=== PATIENT | female | born 1950 | race Caucasian/White ===

== ENCOUNTER 2018-07-28 15:40 | Emergency (ER) | payer OTHER ==
[2018-07-28] MEDS ORDERED: ACETAMINOPHEN 325 MG TABLET (FP) PO ONE (15:57)
--- NOTE | 2018-07-28 15:58 | PDOC ---
History of Present Illness - General Stated Complaint: FALL Time Seen by Provider: 07/28/18 15:56 - History of Present Illness Initial Comments: 07/28/18 15:57 67 yo F with h/o HTN, HLD, DM who p/w left knee pain. Patient reports worsening left knee pain, redness, and difficultly with ambulation beginning (07-23-18) following mechanical fall. Denies head/neck/back trauma, or LOC. Patient reports being on ground for 35 minutes at that time before assisted ambulation. States that she went [facility] (07-[facility]-18), with neg L KNEE RAD. ( Patient has had increased difficulty with ambulation/unassisted. On Cyclobenzaprine, and Gabapentin. Has not attempted NSAID therapy. Also reports elevated home blood sugars x 3 days ~400s. Compliant with Metformin, sulfonyurea. Last knee procedure x 6 months ago. Patient denies N/V, cough, palpitations, wheezing, orthopnea, PND, leg pain/ swelling, F/C, CP, SOB, urinary complaints, abdominal pain, diarrhea, hematuria , BPR, constipation, lightheadedness, weakness, sensory changes. PMHx: as noted above ROS: as noted SHx: Denies tobacco, Etoh, IVDA Allergies: NKDA Past History - Past Medical History Allergies/Adverse Reactions: Allergies Allergy/AdvReac Type Severity Reaction Status Date / Time No Known Allergies Allergy Verified 06/18/17 11:30 Home Medications: Ambulatory Orders Cyclobenzaprine HCl 5 mg PO DAILY 07/28/18 Enalapril/Hydrochlorothiazide [Vaseretic 10-25 mg Tablet] 1 each PO DAILY Gabapentin 100 mg PO DAILY 07/28/18 Glipizide 5 mg PO DAILY 07/28/18 Sitagliptin Phos/Metformin HCl [Janumet 50-500 mg Tablet] 1 each PO BID Diabetes: Yes HTN: Yes Hypercholesterolemia: Yes - Surgical History Orthopedic Surgery: Yes (RAJNI tkr) - Suicide/Smoking/Psychosocial Hx Smoking History: Never smoked Review of Systems - Review of Systems Comments:: 07/28/18 16:05 GENERAL/CONSTITUTIONAL: No fever or chills. No weakness. HEAD, EYES, EARS, NOSE AND THROAT: No change in vision. No ear pain or discharge. No sore throat. CARDIOVASCULAR: No chest pain or shortness of breath RESPIRATORY: No cough, wheezing, or hemoptysis. GASTROINTESTINAL: No nausea, vomiting, diarrhea or constipation. GENITOURINARY: No dysuria, frequency, or change in urination. MUSCULOSKELETAL: + Left knee pain, and swelling. No neck or back pain. SKIN: No rash NEUROLOGIC: No headache, vertigo, loss of consciousness, or change in strength/ sensation. ENDOCRINE: No increased thirst. No abnormal weight change HEMATOLOGIC/LYMPHATIC: No anemia, easy bleeding, or history of blood clots. ALLERGIC/IMMUNOLOGIC: No hives or skin allergy. *Physical Exam - Physical Exam Comments: 07/28/18 16:05 GENERAL: Awake, alert, and fully oriented, in no acute distress HEAD: No signs of trauma, normocephalic, atraumatic EYES: PERRLA, EOMI, sclera anicteric, conjunctiva clear ENT: Hearing grossly normal, nares patent, oropharynx clear without exudates. Moist mucosa NECK: Normal ROM, supple, no lymphadenopathy, JVD, or masses LUNGS: No distress, speaks full sentences, clear to auscultation bilaterally HEART: Regular rate and rhythm, normal S1 and S2, no murmurs, rubs or gallops, peripheral pulses normal and equal bilaterally. EXTREMITIES : Normal inspection, Normal range of motion, no edema. No clubbing or cyanosis. L KNEE: + Left knee joint effusion with warmth, and ttp. + inferior patellar/ tibial tuberosity hemaotma 2x 2cm. Limited ROM 2/2 pain. Palpable and symmetirc 2 + DP/PT pulses. SKIN: Warm, Dry, normal turgor, no rashes or lesions noted Procedures - Arthrocentesis Indication: Inflammation Arthrocentesis Site: left: knee Flexion: 20-30 degree Betadine Prep: Yes Sterile Dressing Applied: Yes Dry Tap: No Fluid Color: Yellow Fluid Amount mL: 15 Anesthesia: 1% Lidocaine Needle Size (guage): 18g Complications: No ED Treatment Course - LABORATORY CBC & Chemistry Diagram: 07/28/18 16:35 07/28/18 16:30 Medical Decision Making - Medical Decision Making 07/28/18 16:05 67 yo F with h/o HTN, HLD, DM, BL KNEE Replacement, BIBA with left knee pain. Temp 100.3, HR 112, vitals otherwise wnl, A&Ox3. + Left knee joint effusion with warmth, and ttp. + inferior patellar/tibial tuberosity hematoma 2 x 2cm. Limited ROM 2/2 pain. Palpable and symmetric 2 + DP/PT pulses. LLE neurovasculalry intact. Possible joint effusion, hemarthrosis. R/o fracture/ dislocation, septic joint, prosthetic infection. ED Course: KNEE RAD LEFT CBC,CMP Tylenol, vanc, keflex 07/28/18 17:43 WBC: 13.3 Glu~340, anion gap 9, PH 7.40 LA: 1.5 Hyponatremia ~129 07/28/18 17:44 EKG: Sinus tachycardia HR 103, Q waves lead I,AVL. Absent DELONTE, STD, TWI. Poor R wave progression. Nml interval and axis duration. 07/28/18 18:06 Percocet 07/28/18 18:24 UA: 3+ blood, 1 RBC, LE + , Nitrite + . No urinary complaints. Keflex 500 mg PO 07/28/18 19:51 ORTHOPEDIST Clark Dasilva 07/28/18 19:54 Contacted [facility] transfer center. Plan to transfer. Per Dr. Mariangel Solo, perform arthocentesis with cell count and culture, before transfer. Pending CRP, ESR. [id number] 07/28/18 21:33 ESR/CRP: 92/22.6 07/28/18 22:[address] Mariangel solo refuses transfer. Requests joint aspiration. Joint aspiration, left knee. No complications. Yellow aspirate drawn 15 cc. Synovial fluid cell count, crystals, cx. pending Spoke to Dr. Solo. Continues to refuse transfer to [facility] until synovial fluid results. Spoke to [facility], agrees with IV AB, but will require transfer if patient with septic joint. 07/28/18 23:35 Patient accepted to med/surg [facility], Endorsed to Dr. Lorenzo. *DC/Admit/Observation/Transfer Diagnosis at time of Disposition: Sepsis Qualifiers: Sepsis type: sepsis due to unspecified organism Qualified Code(s): A41.9 - Sepsis, unspecified organism Septic joint of left knee joint Qualifiers: Septic arthritis organism: due to unspecified organism Qualified Code(s): M00.9 - Pyogenic arthritis, unspecified - Discharge Dispostion Condition at time of disposition: Stable Decision to Admit order: Yes - Referrals Referrals: Xavier Meade MD [Primary Care Provider] - - Patient Instructions - Post Discharge Activity
[2018-07-28 16:07] VITALS: BMI 20.9
[2018-07-28] MEDS ORDERED: ACETAMINOPHEN 325 MG TABLET (FP) ONE (16:36)
[2018-07-28 16:42] LABS: VENOUS PC02 42.6 mmHg (38-52); VENOUS PH 7.4 (7.32-7.42); VENOUS PO2 25.3 mmHg (28-48)
[2018-07-28 16:43] LABS: BASO % 0.4 % (0-2.0); EOS % 0.2 % (0-4.5); HEMATOCRIT 33.6 % (32.4-45.2); HEMOGLOBIN 11.6 GM/dL (10.7-15.3); LYMPH % 7.4 % (8-40); MCH 28.9 pg (25.7-33.7); MCHC 34.6 g/dl (32.0-36.0); MEAN CELL VOLUME 83.3 fl (80-96); MEAN PLT VOLUME 8.5 fl (7.5-11.1); MONO % 9.7 % (3.8-10.2); NEUT % 82.3 % (42.8-82.8); PLATELET COUNT 366 K/MM3 (134-434); RBC 4.04 M/mm3 (3.60-5.2); RDW 14.9 % (11.6-15.6); WHITE BLOOD COUNT 13.3 K/mm3 (4.0-10.0)
--- NOTE | 2018-07-28 17:14 | PDOC ---
Attending Attestation - HPI HPI: 07/28/18 17:43 The patient is a 67 year old female, with a significant past medical history of HTN, HLD, DM, who presents to the emergency department with, worsening left knee pain with associated difficulty ambulating, redness, and warmth. Patient endorses a mechanical fall on 07/23 and she had a knee x-ray without any pertinent findings. Today she notes her symptoms have persisted despite the use of Cyclobenzaprine and Gabapentin, prompting her visit to the ER. She denies recent fevers, chills, headache or dizziness. She denies recent nausea, vomit, diarrhea or constipation. She denies recent dysuria, frequency, urgency or hematuria. She denies recent chest pain or shortness of breath. Allergies: NKDA <LuizdaDilcia lazcano - Last Filed: 07/28/18 17:43> - Resident Resident Name: Brando Swensonson - ED Attending Attestation I have performed the following: I have examined & evaluated the patient, The case was reviewed & discussed with the resident, I agree w/resident's findings & plan, Exceptions are as noted - Physicial Exam PE: GENERAL: Awake, alert, and fully oriented, in no acute distress HEAD: No signs of trauma EYES: PERRLA, EOMI, sclera anicteric, conjunctiva clear ENT: Auricles normal inspection, hearing grossly normal, nares patent, oropharynx clear without exudates. Moist mucosa NECK: Normal ROM, supple, no lymphadenopathy, JVD, or masses LUNGS: Breath sounds equal, clear to auscultation bilaterally. No wheezes, and no crackles HEART: Regular rate and rhythm, normal S1 and S2, no murmurs, rubs or gallops ABDOMEN: Soft, nontender, normoactive bowel sounds. No guarding, no rebound. No masses EXTREMITIES: L knee with diffuse tenderness, swelling. +Erythematous rasied lesion over the proximal tibia. No overlying skin lesions. Remainder of extremities with normal range of motion, no edema. No clubbing or cyanosis. No cords, erythema, or tenderness NEUROLOGICAL: Cranial nerves II through XII grossly intact. Normal speech. Motor and sensation intact. Unable to ambulate due to pain. SKIN: Warm, Dry, normal turgor, no rashes or lesions noted. - Medical Decision Making Pt with redness, swelling to L knee, history of total knee replacement. Febrile in ED. There is no obvious point of entry for an infectious process, however, concerned that she has infected hardware. She may also have periprosthetic fx. Will obtain labs and XR, then will d/w her orthopedic surgeon. <Ni Forman - Last Filed: 07/29/18 10:49> Attestations - Attestations 07/28/18 17:43 Documentation prepared by Dilcia Macedo, acting as medical stenographer for Ni Forman MD. <Dilcia Macedo - Last Filed: 07/28/18 17:43>
[2018-07-28 17:32] LABS: ALBUMIN 2.5 g/dl (3.4-5.0); ALK PHOS 96 U/L (45-117); ANION GAP 9 MMOL/L (8-16); BILIRUBIN,TOTAL 0.8 mg/dL (0.2-1); BLOOD UREA NITROGEN 32 mg/dL (7-18); CALCIUM 8.9 mg/dL (8.5-10.1); CHLORIDE 93 mmol/L (98-107); CO2 26 mmol/L (21-32); CREATININE 1.1 mg/dL (0.55-1.3); POTASSIUM 4.2 mmol/L (3.5-5.1); SGOT/AST 13 U/L (15-37); SGPT/ALT 15 U/L (13-61); SODIUM 129 mmol/L (136-145); TOT PROT 6.9 g/dl (6.4-8.2)
[2018-07-28 17:37] LABS: GLUCOSE,RANDOM 340 mg/dL (74-106)
[2018-07-28] MEDS ORDERED: SODIUM CHLORIDE 1,660 ML IV ONE (17:42)
[2018-07-28 17:53] LABS: URINE APPEARANCE SLCLOUDY; URINE BILIRUBIN NEGATIVE (<2.0 mg/dL); URINE COLOR YELLOW; URINE GLUCOSE (UA) 3+ (NEGATIVE); URINE KETONE NEGATIVE (NEGATIVE); URINE LEUK ESTERASE 1+ (NEGATIVE); URINE NITRITE POSITIVE (NEGATIVE); URINE PROTEIN 1+ (NEGATIVE); URINE UROBILINOGEN NEGATIVE mg/dL (0.2-1.0)
[2018-07-28 17:57] LABS: URINE BACTERIA FEW /hpf (NONE SEEN); URINE MUCUS RARE
[2018-07-28] MEDS ORDERED: CEPHALEXIN MONOHYDRATE 500 MG CAPSULE (UD) PO ONE (18:24)
[2018-07-28] MEDS ORDERED: CEPHALEXIN MONOHYDRATE 500 MG CAPSULE (UD) ONE (18:35)
[2018-07-28] MEDS ORDERED: VANCOMYCIN 1,000 MG in DEXTROSE 5%-WATER - 250 ML IVPB ONE (19:48)
--- NOTE | 2018-07-28 19:48 | PDOC ---
*Physical Exam - Vital Signs Last Vital Signs Temp Pulse Resp BP Pulse Ox 100.5 F H 92 H 18 106/72 96 07/28/18 18:09 07/28/18 18:09 07/28/18 18:09 07/28/18 18:09 07/28/18 18:09 ED Treatment Course - LABORATORY CBC & Chemistry Diagram: 07/28/18 16:35 07/28/18 16:30 - ADDITIONAL ORDERS Additional order review: Laboratory Results 07/28/18 07/28/18 07/28/18 16:35 16:35 16:30 PTT (Actin FS) 28.2 VBG pH 7.40 POC VBG pCO2 42.6 POC VBG pO2 25.3 L Mixed VBG HCO3 26.9 H Sodium 129 L Potassium 4.2 Chloride 93 L Carbon Dioxide 26 Anion Gap 9 BUN 32 H Creatinine 1.1 Creat Clearance w eGFR 49.39 Random Glucose 340 H* Lactic Acid Calcium 8.9 Total Bilirubin 0.8 AST 13 L ALT 15 Alkaline Phosphatase 96 Troponin I 0.04 Total Protein 6.9 Albumin 2.5 L Urine Color Urine Appearance Urine pH Ur Specific [place] Urine Protein Urine Glucose (UA) Urine Ketones Urine Blood Urine Nitrite Urine Bilirubin Urine Urobilinogen Ur Leukocyte Esterase Urine WBC (Auto) Urine RBC (Auto) Urine Bacteria Urine Mucus 07/28/18 07/28/18 16:20 16:20 PTT (Actin FS) VBG pH POC VBG pCO2 POC VBG pO2 Mixed VBG HCO3 Sodium Potassium Chloride Carbon Dioxide Anion Gap BUN Creatinine Creat Clearance w eGFR Random Glucose Lactic Acid 1.5 Calcium Total Bilirubin AST ALT Alkaline Phosphatase Troponin I Total Protein Albumin Urine Color Yellow Urine Appearance Slcloudy Urine pH 5.0 Ur Specific [place] 1.018 Urine Protein 1+ H Urine Glucose (UA) 3+ H Urine Ketones Negative Urine Blood 2+ H Urine Nitrite Positive Urine Bilirubin Negative Urine Urobilinogen Negative Ur Leukocyte Esterase 1+ H Urine WBC (Auto) 9 Urine RBC (Auto) 1 Urine Bacteria Few Urine Mucus Rare 07/28/18 16:35 RBC 4.04 MCV 83.3 MCHC 34.6 RDW 14.9 MPV 8.5 Neutrophils % 82.3 Lymphocytes % 7.4 L Monocytes % 9.7 Eosinophils % 0.2 Basophils % 0.4 - Medications Given in the ED: ED Medications Discontinued Medications Generic Name Dose Route Start Last Admin Trade Name Freq PRN Reason Stop Dose Admin Acetaminophen 650 mg 07/28/18 15:57 07/28/18 16:53 Tylenol - PO 07/28/18 15:58 650 mg ONCE ONE Administration Cephalexin HCl 500 mg 07/28/18 18:24 07/28/18 18:40 Keflex - PO 07/28/18 18:25 500 mg ONCE ONE Administration Sodium Chloride 1,660 mls @ 830 mls/hr 07/28/18 17:42 07/28/18 17:58 Normal Saline - 30 ml/kg infuse over 2 hr (1660 ml) 07/28/18 19:41 830 mls/ hr IV Administration ONCE ONE Oxycodone/Acetaminophen 2 combo 07/28/18 18:06 07/28/18 19:09 Percocet 5/325 - PO 07/28/18 18:07 Not Given ONCE ONE Oxycodone/Acetaminophen 1 combo 07/28/18 19:05 07/28/18 18:40 Percocet 5/325 - PO 07/28/18 19:06 1 combo ONCE ONE Administration Medical Decision Making - Medical Decision Making 07/28/18 19:47 Pt signed out to me. Diabetic with knee infection/infected hardware. SHe will be transferred to her orthopedist at [facility]; resident will be callin 1800 [facility] STAT to get her over there. She is getting vanco etc. 07/28/18 22:57 Been trying to transfer the patient to [facility], since I got here, but the Orthopedist wont take her without CRP or sed rate. Those were sent; now he wants a joint tap. That was sent. Denzel pus in the joint. He is refusing to take the patient. 07/29/18 01:10 WBC 136K in the synovial joint, as expected. We called [facility] transfer ctr, and they are unable to get in touch with Dr. Clark Arnold, as he turned off his phone... Pt will be transferred to Dr. Weiner at the [facility] ER. We will arrange for transfer. [facility] transfer ctr is aware. 07/29/18 02:05 Stable and she is awaiting transfer to [facility] *DC/Admit/Observation/Transfer Diagnosis at time of Disposition: Sepsis Qualifiers: Sepsis type: sepsis due to unspecified organism Qualified Code(s): A41.9 - Sepsis, unspecified organism Septic joint of left knee joint Qualifiers: Septic arthritis organism: due to unspecified organism Qualified Code(s): M00.9 - Pyogenic arthritis, unspecified - Discharge Dispostion Disposition: TRANSFER ACUTE CARE/OTHER HOSP Condition at time of disposition: Stable - Referrals Referrals: Xavier Meade MD [Primary Care Provider] - - Patient Instructions - Post Discharge Activity Procedures - Arthrocentesis Indication: Septic Joint Arthrocentesis Site: left: knee Flexion: 20-30 degree Betadine Prep: Yes Sterile Dressing Applied: Yes Dry Tap: No Fluid Color: Yellow Fluid Amount mL: 15 Anesthesia: 1% Lidocaine Needle Size (guage): 18g Complications: No
[2018-07-28] MEDS ORDERED: VANCOMYCIN 1 GRAM (PRE-DOCKED) 1,000 MG/250 ML BAG IVPB ONE (20:05)
[2018-07-28] MEDS ORDERED: HEMOQUE TEST 1 EACH EACH ONE (21:42)
--- NOTE | 2018-07-28 23:23 | PN ---
Teaching Attending Note Name of Resident: Devin Craft ATTENDING PHYSICIAN STATEMENT I saw and evaluated the patient. I reviewed the resident's note and discussed the case with the resident. I agree with the resident's findings and plan as documented. SUBJECTIVE: Patient is a 67 year old woman with history of HTN, HLD and DM who presents with left knee pain. Patient reports worsening left knee pain, redness, and difficultly with ambulation beginning (07-23-18) following mechanical fall. Denies head/neck/back trauma, or LOC. Patient reports being on ground for 35 minutes at that time before assisted ambulation. States that she went to [facility] (07[facility]-18), with neg L KNEE RAD. ( Patient has had increased difficulty with ambulation/unassisted. On Cyclobenzaprine, and Gabapentin. Has not attempted NSAID therapy. Also reports elevated home blood sugars for 3 days ~400s. Compliant with Metformin, sulfonyurea. Last knee procedure x 6 months ago. Patient denies N/V, cough, palpitations, wheezing, orthopnea, PND, SOB, urinary complaints, abdominal pain, diarrhea, hematuria, BPR, constipation, lightheadedness, weakness, sensory changes. OBJECTIVE: Alert Vital Signs Period Temp Pulse Resp BP Sys/Stephen Pulse Ox Last 24 Hr 98.2 F-100.5 F 90-112 18-112 106-110/72-73 95-98 HEENT: No Jaundice, eye redness or discharge, PERRLA, EOMI. Normocephalic, atraumatic. External ears are normal and hearing is grossly intact. No nasal discharge. Neck: Supple, nontender. No palpable adenopathy or thyromegaly. No JVD Chest: Good effort. Clear to auscultation and percussion. Heart: Regular. No S3, rub or murmur Abdomen: Not distended, soft, nontender and no HSM. No rebound or guarding. Normoactive bowel sounds. Ext: Peripheral pulses intact. No leg edema. Swollen and tender left knee with pain on movement. Erythematous fluctuant collection just inferior to the knee joint on the proximal tibia. Skin: Warm and dry. No petechiae, rash or ecchymosis. Neuro: Alert. Oriented x3. CN 2-12 grossly intact. Sensation grossly intact in all four extremities and DTR are symmetric. Home Medications Medication Instructions Recorded Cyclobenzaprine HCl 5 mg PO DAILY 07/28/18 Enalapril/Hydrochlorothiazide 1 each PO DAILY 07/28/18 [Vaseretic 10-25 mg Tablet] Gabapentin 100 mg PO DAILY 07/28/18 Glipizide 5 mg PO DAILY 07/28/18 Sitagliptin Phos/Metformin HCl 1 each PO BID 07/28/18 [Janumet 50-500 mg Tablet] Abnormal Lab Results 07/28/18 07/28/18 07/28/18 16:20 16:20 16:30 WBC Absolute Neuts (auto) Lymphocytes % ESR 92 H POC VBG pO2 Mixed VBG HCO3 Sodium 129 L Chloride 93 L BUN 32 H Random Glucose 340 H* AST 13 L C-Reactive Protein Albumin 2.5 L Urine Protein 1+ H Urine Glucose (UA) 3+ H Urine Blood 2+ H Ur Leukocyte Esterase 1+ H 07/28/18 07/28/18 07/28/18 16:35 16:35 20:00 WBC 13.3 H Absolute Neuts (auto) 11.0 H Lymphocytes % 7.4 L ESR POC VBG pO2 25.3 L Mixed VBG HCO3 26.9 H Sodium Chloride BUN Random Glucose AST C-Reactive Protein 22.6 H Albumin Urine Protein Urine Glucose (UA) Urine Blood Ur Leukocyte Esterase ASSESSMENT AND PLAN: 1. 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 No acute pathology on CXR. Patient being transferred to [facility]. 2. Severe Hypoalbuminemia - Possibly due to combined effects of proteinuria, malnutrition and inflammation associated with comorbid chronic conditions. Will ensure adequate dietary protein intake and also consult process controls technician. Upon discharge will benefit from intensified ACEI therapy to address protienuria. 3. Uncontrolled DM - For now, we will hold the home diabetes drugs and implement sliding scale insulin regimen. Provide comprehensive diabetes care with patient teaching and counseling about the importance of euglycemia, eye care and foot care. Hyponatremia likely due to hyperglycemia. 4. DVT prophylaxis - Lovenox 40 mg SQ q 24 hours. 5. Advance directives - Full code
[2018-07-28] MEDS ORDERED: SODIUM CHLORIDE 1,000 ML IV SCH (23:45)
[2018-07-29] MEDS ORDERED: ACETAMINOPHEN 1000 MG/100 ML VIAL (NON FORMULARY) IVPB PRN
--- NOTE | 2018-07-29 00:34 | HP ---
UPDATE 2: Pt successfully transferred out of building to [facility] en route UPDATE: [facility] called back and accepted pt for transport. Will be leaving soon. Pt currently in stable condition. Explained to pt who understands. CHIEF COMPLAINT: Knee Pain PCP: Dr. Meade HISTORY OF PRESENT ILLNESS: 68yo F with h/o HTN, HLD, DM who presents today the ED today with complaints of worsening L knee pain and swelling for the past 3 days. Pt reports having a mechanical fall onto the knee recently when it became edematous with overlying skin changes. Pt reports her pain worsened over the past 3 days and decided to come to the hospital when she could not walk and the knee was hot to the touch. PT denies any lower extremity sensation change, denies fever/chills, cough, shortness of breath, CP/discomfort, palpitations, abdominal pain. Pt endorses some polyuria, but no dysuria at this time. PAST MEDICAL HISTORY: HTN HLD DM PAST SURGICAL HISTORY: Social History: Smoking: Denies Alcohol: Denies Drugs: Denies Lives at home with family ( and son) Allergies No Known Allergies Allergy (Verified 06/18/17 11:30) HOME MEDICATIONS: Home Medications Medication Instructions Recorded Cyclobenzaprine HCl 5 mg PO DAILY 07/28/18 Enalapril/Hydrochlorothiazide 1 each PO DAILY 07/28/18 [Vaseretic 10-25 mg Tablet] Gabapentin 100 mg PO DAILY 07/28/18 Glipizide 5 mg PO DAILY 07/28/18 Sitagliptin Phos/Metformin HCl 1 each PO BID 07/28/18 [Janumet 50-500 mg Tablet] REVIEW OF SYSTEMS As per HPI PHYSICAL EXAMINATION Vital Signs - 24 hr 07/28/18 07/28/18 07/28/18 16:02 17:58 18:09 Temperature 100.3 F H 100.5 F H Pulse Rate 112 H Pulse Rate [ 92 H Apical] Respiratory 112 H 18 Rate Blood Pressure 110/73 Blood Pressure 106/72 [Right Arm] O2 Sat by Pulse 95 96 96 Oximetry (%) 07/28/18 20:56 Temperature 98.2 F Pulse Rate Pulse Rate [ 90 Apical] Respiratory 18 Rate Blood Pressure Blood Pressure 109/73 [Right Arm] O2 Sat by Pulse 98 Oximetry (%) GENERAL: NAD, awake, alert, and fully oriented, laying in bed HEENT: NC/AT, EOMI, RICARDO, MMM Neck: Soft LUNGS: CTA bilaterally. No wheezes, and no crackles. No accessory muscle use. HEART: RRR, normal S1 and S2 without murmur ABDOMEN: Soft, NT/ND, normoactive bowel sounds, no guarding, no suprapubic tenderness. MUSCULOSKELETAL: No CVA tenderness. EXTREMITIES: 2+ DP pulses b/l, L knee with moderate size effusions and residual iodine on skin, TTP, L knee ROM diminished due to effusion, no other edema noted. NEUROLOGICAL: government clerk II-XII intact. Normal speech. Strength 5/5 in dorsal/palmar flexion b/l, sensation in lower extremities intact in all mcclure. Gait unable to be observed PSYCHIATRIC: Cooperative. Good eye contact. Appropriate mood and affect. SKIN: Warm, dry, no rashes or lesions noted Laboratory Results - last 24 hr 07/28/18 07/28/18 07/28/18 16:20 16:20 16:20 WBC RBC Hgb Hct MCV MCH MCHC RDW Plt Count MPV Absolute Neuts (auto) Neutrophils % Lymphocytes % Monocytes % Eosinophils % Basophils % Nucleated RBC % ESR 92 H PTT (Actin FS) VBG pH POC VBG pCO2 POC VBG pO2 Mixed VBG HCO3 Sodium Potassium Chloride Carbon Dioxide Anion Gap BUN Creatinine Creat Clearance w eGFR POC Glucometer Random Glucose Lactic Acid 1.5 Calcium Total Bilirubin AST ALT Alkaline Phosphatase Troponin I C-Reactive Protein Total Protein Albumin Urine Color Yellow Urine Appearance Slcloudy Urine pH 5.0 Ur Specific [place] 1.018 Urine Protein 1+ H Urine Glucose (UA) 3+ H Urine Ketones Negative Urine Blood 2+ H Urine Nitrite Positive Urine Bilirubin Negative Urine Urobilinogen Negative Ur Leukocyte Esterase 1+ H Urine WBC (Auto) 9 Urine RBC (Auto) 1 Urine Bacteria Few Urine Mucus Rare 07/28/18 07/28/18 07/28/18 16:30 16:35 16:35 WBC 13.3 H RBC 4.04 Hgb 11.6 Hct 33.6 MCV 83.3 MCH 28.9 MCHC 34.6 RDW 14.9 Plt Count 366 MPV 8.5 Absolute Neuts (auto) 11.0 H Neutrophils % 82.3 Lymphocytes % 7.4 L Monocytes % 9.7 Eosinophils % 0.2 Basophils % 0.4 Nucleated RBC % 0 ESR PTT (Actin FS) 28.2 VBG pH POC VBG pCO2 POC VBG pO2 Mixed VBG HCO3 Sodium 129 L Potassium 4.2 Chloride 93 L Carbon Dioxide 26 Anion Gap 9 BUN 32 H Creatinine 1.1 Creat Clearance w eGFR 49.39 POC Glucometer Random Glucose 340 H* Lactic Acid Calcium 8.9 Total Bilirubin 0.8 AST 13 L ALT 15 Alkaline Phosphatase 96 Troponin I 0.04 C-Reactive Protein Total Protein 6.9 Albumin 2.5 L Urine Color Urine Appearance Urine pH Ur Specific [place] Urine Protein Urine Glucose (UA) Urine Ketones Urine Blood Urine Nitrite Urine Bilirubin Urine Urobilinogen Ur Leukocyte Esterase Urine WBC (Auto) Urine RBC (Auto) Urine Bacteria Urine Mucus 07/28/18 07/28/18 07/28/18 16:35 20:00 21:49 WBC RBC Hgb Hct MCV MCH MCHC RDW Plt Count MPV Absolute Neuts (auto) Neutrophils % Lymphocytes % Monocytes % Eosinophils % Basophils % Nucleated RBC % ESR PTT (Actin FS) VBG pH 7.40 POC VBG pCO2 42.6 POC VBG pO2 25.3 L Mixed VBG HCO3 26.9 H Sodium Potassium Chloride Carbon Dioxide Anion Gap BUN Creatinine Creat Clearance w eGFR POC Glucometer [phone] Random Glucose Lactic Acid Calcium Total Bilirubin AST ALT Alkaline Phosphatase Troponin I C-Reactive Protein 22.6 H Total Protein Albumin Urine Color Urine Appearance Urine pH Ur Specific [place] Urine Protein Urine Glucose (UA) Urine Ketones Urine Blood Urine Nitrite Urine Bilirubin Urine Urobilinogen Ur Leukocyte Esterase Urine WBC (Auto) Urine RBC (Auto) Urine Bacteria Urine Mucus EGG - Sinus tachycardia @103bpm; normal axis, early R-wave progression, TWI in lead III isolated lead; QTc 437ms. ASSESSMENT/PLAN: Sepsis 2/2 to septic joint vs. UTI Hyponatremia DM HTN HLD --If cannot transfer back to [facility] then can accept to [facility] for IV antibiotics and ortho f/u --Vancomycin 1gm qDaily and Rocephin 1gm qDaily for coverage --Rocephin will cover UTI as well --Ofirmev q6h PRN for fever or pain --May have to escalate pain management further pending pt's tolerance --Pt will remain NPO; Heparin on hold --F/U joint aspiration studies --NS@75cc/hr --Hyponatremia likely 2/2 to hyperglycemia; will monitor once glucose control administered and pt already getting NS@75cc/hr --BGM ACHS; cover with ISS ACHS --Continue Enalapril-HCTZ combo with minimal sip of water okay FEN: Fluids: As above Electrolyte abnormalities: As above Nutrition: NPO for now PPX: DVT - On hold GI - Not indicated Dispo: [facility] if cannot transfer Case discussed with Dr. Wandy Lorenzo, DO - IM PGY-2 Visit type - Emergency Visit Emergency Visit: Yes ED Registration Date: 07/28/18 Care time: The patient presented to the Emergency Department on the above date and was hospitalized for further evaluation of their emergent condition. - New Patient This patient is new to me today: Yes Date on this admission: 07/29/18 - Critical Care Critical Care patient: No
[2018-07-29 00:40] LABS: SYNOVIAL FLUID LYMPHOCYTES 2 %; SYNOVIAL FLUID MONOCYTES 3 %; SYNOVIAL FLUID NEUTROPHILS 95 %
[2018-07-29 03:10] VITALS: BP 116/64; PULSE 92; TEMP 98.8
[2018-07-29] MEDS ORDERED: INSULIN SLIDING SCALE (NOVOLOG) 1 VIAL SQ SCH (07:00)
--- NOTE | 2018-07-29 09:42 | EKG ---
Test Reason : Blood Pressure : / mmHG Vent. Rate : 103 BPM Atrial Rate : 103 BPM P-R Int : 134 ms QRS Dur : 080 ms QT Int : 334 ms P-R-T Axes : 017 005 021 degrees QTc Int : 437 ms SINUS TACHYCARDIA OTHERWISE NORMAL ECG NO PREVIOUS ECGS AVAILABLE Confirmed by BRODIE QUEVEDO MD ([id number]) on 07/29/2018 9:41:54 AM Referred By: Confirmed By:BRODIE QUEVEDO MD
[2018-07-29] MEDS ORDERED: CEFTRIAXONE 1 GM in DEXTROSE 5%-WATER - 50 ML IVPB SCH (10:00)
[2018-07-29 10:32] LABS: SYNOVIAL FLUID RBC 14022 /mm3
[2018-07-29 11:17] LABS: CRYSTALS,SYNOVIAL FLUID NEGATIVE
[2018-07-29] MEDS ORDERED: VANCOMYCIN 1 GRAM (PRE-DOCKED) 1,000 MG/250 ML BAG IVPB SCH (21:00)
== END 2018-07-29 03:18 | disposition short-term general hospital (02) ==
LOC: JER 15:40 → UNDOADMIN 23:12 → JERBED 23:12
PROC: 0S9D3ZZ Drainage of Left Knee Joint, Percutaneous Approach (ICD-10-PCS; principal; 2018-07-28)
DX: A41.9 Sepsis, unspecified organism (principal); M00.9 Pyogenic arthritis, unspecified; I10 Essential (primary) hypertension; E78.5 Hyperlipidemia, unspecified; E11.9 Type 2 diabetes mellitus without complications
CPT/HCPCS: 20610; 36415; 71045-TC-FY; 73562-TC-LT-FY; 80053; 81003; 81015; 82803; 82945; 82962; 83605; 83615; 84484; 85025; 85651; 85730; 86140; 87040; 87070; 87075; 87086; 87186; 87205; 89051; 89060; 93005; 93010; 99285-25; J7030

== ENCOUNTER 2020-12-15 14:20 | Emergency (ER) | payer OTHER ==
[2020-12-15 14:51] VITALS: TEMP 99.1; BMI 25.0
[2020-12-15 15:24] LABS: BASO % 1.2 % (0-2.0); EOS % 2.4 % (0-4.5); HEMATOCRIT 42.9 % (32.4-45.2); HEMOGLOBIN 14.6 GM/dl (10.7-15.3); LYMPH % 20.8 % (8-40); MCH 29.1 pg (25.7-33.7); MCHC 34.1 g/dl (32.0-36.0); MEAN CELL VOLUME 85.3 fl (80-96); MEAN PLT VOLUME 9.4 fl (7.5-11.1); MONO % 8.8 % (3.8-10.2); NEUT % 66.8 % (42.8-82.8); PLATELET COUNT 244 K/MM3 (134-434); RBC 5.02 M/mm3 (3.60-5.2); RDW 12.3 % (11.6-15.6); WHITE BLOOD COUNT 6.3 K/mm3 (4.0-10.8)
[2020-12-15 15:31] LABS: ACTIVATED PTT 27.7 SECONDS (25.2-36.5)
[2020-12-15 15:35] LABS: ALK PHOS 76 U/L (45-117); ANION GAP 8 MMOL/L (8-16); BILIRUBIN,TOTAL 0.6 mg/dl (0.2-1); CALCIUM 9.4 mg/dl (8.5-10); CHLORIDE 103 mmol/L (98-107); CO2 24 mmol/L (21-32); CREATININE 0.8 mg/dl (0.55-1.3); GLUCOSE,RANDOM 147 mg/dl (74-106); MAGNESIUM 1.8 mg/dL (1.8-2.4); SGOT/AST 19 U/L (15-37); SGPT/ALT 12 U/L (13-61); SODIUM 135 mmol/L (136-145); TOT PROT 6.8 g/dl (6.4-8.2)
[2020-12-15 15:36] LABS: INR 1.07 (0.82-1.09); PROTHROMBIN TIME (PATIENT) 11.9 SEC (10.2-13.0)
[2020-12-15 16:11] VITALS: BP 136/80; PULSE 80
== END 2020-12-15 17:41 | disposition home or self-care (01) ==
LOC: FER 14:20
DX: R07.9 Chest pain, unspecified (principal)
CPT/HCPCS: 36415; 71045-TC-FY; 80053; 82550; 83735; 84484; 85025; 85610; 85730; 93005; 99285-25

== ENCOUNTER 2021-07-12 15:41 | Emergency (ER) | payer OTHER ==
[2021-07-12 16:34] VITALS: PULSE 85; TEMP 97.2; BMI 24.7
[2021-07-12 19:10] VITALS: BP 159/98
== END 2021-07-12 19:11 | disposition home or self-care (01) ==
LOC: JER 15:41
DX: S00.83XA Contusion of other part of head, initial encounter (principal); M79.641 Pain in right hand; M79.642 Pain in left hand; W19.XXXA Unspecified fall, initial encounter
CPT/HCPCS: 70450-TC; 72125-TC; 73130-TC-LT-FY; 73130-TC-RT-FY; 99284-25